=== PATIENT | male | born 1960 | race Two or more races ===

== ENCOUNTER 2024-07-20 19:54 | Emergency (ER) | payer OTHER ==
[~2024-07-20] VITALS: Ht 177.8 cm; Wt 96.2 kg
[2024-07-20] MEDS ORDERED: COZAAR50 MG PO (20:21)
[2024-07-20] MEDS ORDERED: ATORVASTATIN CA10 MG PO (20:21)
[2024-07-20 23:19] LABS: HEMATOCRIT 44.7 % (39.0-48.0); HEMOGLOBIN 15.7 g/dL (13-16.00); MEAN CELL VOLUME 92.7 fL (80.0-100.00); MEAN CORPUSCULAR HEMOGLOBIN 32.6 pg (27.00-32.0); MEAN CORPUSCULAR HGB CONC 35.1 g/dl (32.0-36.0); PLATELET COUNT 211 K/uL (150-450); RED BLOOD COUNT 4.82 M/uL (4.00-6.00); RED CELL DISTRIBUTION WIDTH 12.9 % (11.5-14.5)
[2024-07-20 23:28] LABS: CALCIUM 9.4 mg/dL (8.5-10.1); CREATININE SERUM 0.73 mg/dL (0.70-1.30); GFR 108.87; POTASSIUM 4.06 mEq/L (3.5-5.1)
== END 2024-07-21 00:37 | disposition home or self-care (01) ==
LOC: ER 19:56
PROVIDERS: General Practice
DX: R53.81 Other malaise (principal); R42 Dizziness and giddiness

== ENCOUNTER 2024-11-07 16:30 | Emergency (ER) | payer OTHER ==
[~2024-11-07] VITALS: Ht 177.8 cm; Wt 98.9 kg
[~2024-11-07 16:30] MED LIST: ATORVASTATIN CA10 MG PO; COZAAR50 MG PO
[2024-11-07] MEDS ORDERED: ORPHENADRINE CITRATE 30 MG/ML AMPUL IM ONE (17:45)
[2024-11-07] MEDS ORDERED: KETOROLAC TROMETHAMINE 30 MG VIAL IM ONE (17:45)
[2024-11-07] MEDS ORDERED: ORPHENADRINE CITRATE 30 MG/ML AMPUL ONE (17:47)
[2024-11-07] MEDS ORDERED: KETOROLAC TROMETHAMINE 30 MG VIAL ONE (17:47)
== END 2024-11-07 19:02 | disposition home or self-care (01) ==
LOC: ER 16:32
DX: M54.30 Sciatica, unspecified side (principal); I10 Essential (primary) hypertension

== ENCOUNTER → 2025-04-11 | Emergency (ER) | payer OTHER ==
[~2025-04-11] VITALS: Ht 167.6 cm; Wt 93.0 kg
== END | disposition left against medical advice (07) ==
LOC: ER 15:56
DX: K08.89 Other specified disorders of teeth and supporting structures (principal)